=== PATIENT | male | born 1990 | race Caucasian/White ===

== ENCOUNTER 2018-02-27 05:55 | Emergency (ER) | payer MEDICAID ==
--- NOTE | 2018-02-27 06:56 | EDPHY ---
H & P Stated Complaint: LOITERING IN [facility], NOW FOOT PAIN AND NO SLEEP Source: Patient Exam Limitations: No limitations - Personal History Current Tetanus/Diphtheria Vaccine: Unsure Current Tetanus Diphtheria and Acellular Pertussis (TDAP): Unsure - Medical/Surgical History Hx Asthma: No Hx Chronic Respiratory Disease: No Hx Diabetes: No Hx Cardiac Disease: No Hx Renal Disease: No Hx Cirrhosis: No Hx Alcoholism: No Hx HIV/AIDS: No Hx Splenectomy or Spleen Trauma: No Other PMH: BIPOLAR, - Social History Smoking Status: Current every day smoker Time Seen by Provider: 02/27/18 06:45 HPI/ROS: HPI The patient presents with multiple complaints. He initially was in the [facility] earlier this morning. He was asking for food and a place to sleep. Security escorted him off the premises, however he returned complaining of foot pain and insomnia, thus he was roomed in the emergency department. The patient says he has not slept in the last 7 days and has been living in [place] using some sort of drug that he has been smoking and received from an acquaintance. He reports that he is hearing noises coming from outside of the [place] in to get him. He wonders if he used meth by mistake. He says that he normally lives in [place] with his mother, he came to [place] to start over about 1 month ago. He denies any SI or HI. He says he does have a history of bipolar disorder. REVIEW OF SYSTEMS Constitutional: No fever, no chills. Eyes: No discharge. ENT: No sore throat. Cardiovascular: No chest pain, no palpitations. Respiratory: No cough, no shortness of breath. Gastrointestinal: No abdominal pain, no vomiting. Genitourinary: No hematuria. Musculoskeletal: No back pain. Skin: No rashes. Neurological: No headache. PMHx: Bipolar disorder Soc Hx: Homeless, sleeping outside, history of marijuana use, questionable methamphetamine use PHYSICAL General Appearance: Alert, no distress Eyes: Pupils equal and round no pallor or injection ENT, Mouth: Mucous membranes moist Respiratory: There are no retractions, lungs are clear to auscultation Cardiovascular: Regular rate and rhythm Gastrointestinal: Abdomen is soft and non-tender, no masses, bowel sounds normal Neurological: A&O, moves all extremities Skin: Warm and dry, no rashes Musculoskeletal: Neck is supple non tender Extremities: symmetrical, full range of motion Psychiatric: Patient is oriented X 3, there is no agitation , he is having active hallucinations which are auditory (Fina Cordoba) Constitutional: Initial Vital Signs Temperature (C) 36.5 C 02/27/18 06:10 Heart Rate 86 02/27/18 06:10 Respiratory Rate 18 02/27/18 06:10 Blood Pressure 134/82 H 02/27/18 06:10 O2 Sat (%) 95 02/27/18 06:10 O2 Delivery Mode Room Air Allergies/Adverse Reactions: No Known Allergies Allergy (Unverified 02/27/18 06:44) Home Medications: Medication Instructions Recorded Melatonin [Melatonin 3 MG (*)] 3 mg PO HS 02/27/18 Omeprazole Magnesium [Prilosec] 10 mg PO 02/27/18 buPROPion [Wellbutrin 100mg (*)] 100 mg PO TID 02/27/18 Medical Decision Making ED Course/Re-evaluation: This patient was turned over to me at change of shift. He has been accepted at a mental health facility. Appropriate transfer paperwork been filled out. In addition ambulance has been called. (Juan Robin) I took over care of this patient at 3:00 p.m.. This patient is awaiting psychiatric evaluation by EPS. 8:30 p.m.. The patient has been seen and evaluated by Behavioral Health. They feel he is acutely psychotic. They will admit him for inpatient psychiatric management. The patient was placed on an M1 hold at this time. EPS is searching for placement destination. No further issues during my shift. Patient still awaits placement as of 11 PM. Care turned over to Dr. Espinoza at this time. (Rodrigo Chandra) Differential Diagnosis: This is a 27-year-old male, from out of town, with history of bipolar disorder. He has been off of his medications for the last 7 days including Wellbutrin. He has possibly been using methamphetamine. He is having insomnia, not sleeping for 7 days per his report, he is having auditory hallucinations. He does not have any SI or HI. He does not meet criteria at this point for an M1 hold. 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 However we will check basic labs and monitor him here. He was initially complaining of foot pain, however his foot exam is quite unremarkable and likely is pain is related to walking long distances. Differential diagnosis includes drug-induced psychosis, bipolar disorder with psychosis, less likely schizophrenia. At change of shift, the case is signed out to Dr. Rasmussen pending lab evaluation and psychiatric evaluation if he continues to have hallucinations. (Fina Cordoba) Other Provider: I assumed care of the patient at 7 o'clock in the morning pending psychiatric disposition. Patient has been medically cleared at 11:30 a.m. Psychiatric disposition is still pending as of 3:00 p.m.. The patient will be turned over Dr. Chandra at shift change. (Asad Rasmussen) 2230 care assumed by me from Dr. Chandra pending placement. 0700 patient signed out to Dr. Robin pending placement. No issues during my care this patient overnight. (Alex Espinoza) - Data Points Laboratory Results: Laboratory Results 02/27/18 07:05 02/27/18 07:05 Departure - Departure Disposition: Acute Care Hospital On license of [facility] Clinical Impression: Auditory hallucinations Condition: Fair Referrals: [facility],. [Clinic] - As per Instructions
[2018-02-28 08:02] VITALS: BP 124/74
== END 2018-02-28 11:09 | disposition short-term general hospital (02) ==
DX: R44.0 Auditory hallucinations (principal); F17.200 Nicotine dependence, unspecified, uncomplicated
CPT/HCPCS: 80305; G0480

== ENCOUNTER 2018-07-08 19:34 | Emergency (ER) | payer SELFPAY ==
[2018-07-08 19:43] VITALS: BP 144/76
--- NOTE | 2018-07-08 19:46 | EDPHY ---
H & P Stated Complaint: med clear Time Seen by Provider: 07/08/18 19:42 HPI/ROS: HPI: This is a 28-year-old male who presents with Chief Complaint: Medical clearance Location: body Quality: Medical clearance Duration: Unknown Signs and Symptoms: no auditory hallucinations, no visual hallucinations, no suicidal ideation with a plan, no homicidal ideation, + paranoia Timing: Unknown Severity: Moderate Context: Patient has a history of bipolar disorder presents via EMS and accompanied by [facility] Police requesting medical clearance. There was an argument at the transient camp in the police were called. Patient refused to answer questions or talk to EMS or the police. They are unaware of his history and brought him to the emergency room for further evaluation. He smells of alcohol. Patient denies to me suicidal ideation, homicidal ideation. He admits to drinking alcohol but will not tell me how much. He will not answer if he has use any illegal drugs. Modifying Factors: None Comment: ROS: A comprehensive 10 system review of systems is otherwise negative aside from elements mentioned in the history of present illness. MEDICAL/SURGICAL/SOCIAL HISTORY: Medical history: Bipolar disorder Surgical history: Denies Social history: Smoker. Family history noncontributory. CONSTITUTIONAL: Untidy, nontoxic-appearing adult white male, awake and alert, no obvious distress HEENT: Atraumatic and normocephalic, PERRL, EOMI. Nares patent; no rhinorrhea; no nasal mucosal edema. Tympanic membranes clear. Oropharynx clear, no exudate and moist pink mucosa. Airway patent. No lymphadenopathy. No meningismus. Cardiovascular: Normal S1/S2, regular rate, regular rhythm, without murmur rub or gallop. PULMONARY/CHEST: Symmetrical and nontender. Clear to auscultation bilaterally. Good air movement. No accessory muscle usage. ABDOMEN: Soft, nondistended, nontender, no rebound, no guarding, no peritoneal signs, no masses or organomegaly. No CVAT. EXTREMITIES: 2/2 pulses, strength 5/5, no deformities, no clubbing, no cyanosis or edema. NEUROLOGICAL: no focal neuro deficits. GCS 15. SKIN: Warm and dry, no erythema. no rash. Good capillary refill. PSYCH: Poor eye contact, easily agitated, refuses talk, wringing of hand, poor insight and judgment, no auditory hallucinations, no visual hallucinations, no suicidal ideation with a plan, no homicidal ideation, + paranoia Source: Patient, Police, EMS Exam Limitations: Clinical condition - Personal History Current Tetanus Diphtheria and Acellular Pertussis (TDAP): Yes - Medical/Surgical History Hx Asthma: No Hx Chronic Respiratory Disease: No Hx Diabetes: No Hx Cardiac Disease: No Hx Renal Disease: No Hx Cirrhosis: No Hx Alcoholism: No Hx HIV/AIDS: No Hx Splenectomy or Spleen Trauma: No Other PMH: BIPOLAR, - Social History Smoking Status: Current every day smoker Constitutional: Initial Vital Signs Heart Rate 90 07/08/18 19:38 Respiratory Rate 16 07/08/18 19:38 Blood Pressure 144/76 H 07/08/18 19:38 O2 Sat (%) 94 07/08/18 19:38 O2 Delivery Mode Room Air Allergies/Adverse Reactions: No Known Allergies Allergy (Unverified 07/08/18 19:38) Home Medications: Medication Instructions Recorded Melatonin [Melatonin 3 MG (*)] 3 mg PO HS 02/27/18 Omeprazole Magnesium [Prilosec] 10 mg PO 02/27/18 buPROPion [Wellbutrin 100mg (*)] 100 mg PO TID 02/27/18 Medical Decision Making ED Course/Re-evaluation: Vital signs reviewed and stable upon arrival. After much prompting patient finally started to talk to me. He does not meet M1 hold or Detainer criteria. He was medically clear and discharged into the custody of police. This patient was seen under the supervision of my secondary supervising physician. I evaluated care for this patient independently. Discussed this patient with Dr. Chandra. Differential Diagnosis: Differential diagnosis includes but is not limited to alcohol intoxication, intoxicated use, gurinder, psychosis, bipolar disorder. Departure - Departure Disposition: Law Enforcement/Court/Senior Care Clinical Impression: Muteness Bipolar disorder Qualifiers: Active/Remission status: currently active Current bipolar episode type: manic Current episode severity: moderate Qualified Code(s): F31.12 - Bipolar disorder , current episode manic without psychotic features, moderate Condition: Good Instructions: Bipolar Disorder (ED) Additional Instructions: Patient is medically cleared to be discharged into the care of law enforcement. Please follow up with [facility] or [facility] as needed. Referrals: [facility],. [Clinic] - As per Instructions [facility],. [Clinic] - As per Instructions
== END 2018-07-08 19:45 ==
LOC: EDUNIT#
DX: F31.9 Bipolar disorder, unspecified (principal); F17.200 Nicotine dependence, unspecified, uncomplicated

== ENCOUNTER 2018-07-12 05:12 | Emergency (ER) | payer SELFPAY ==
--- NOTE | 2018-07-12 05:20 | EDPHY ---
H & P Time Seen by Provider: 07/12/18 05:21 HPI/ROS: HPI CHIEF COMPLAINT: "stuck out in the cold" HISTORY OF PRESENT ILLNESS: 28-year-old male, homeless, states she drank large amount of alcohol last night, states drinks around 11:00 p.m.. It is now 515 in the morning. [place] He did not have any issues. EMS was called to contact him as he complained he was cold. He presents to the emergency room, alert and oriented, in no acute distress. Patient presents emergency room warm, he has a normal temperature. He has no focal complaints. He is not wearing shoes. His feet and hands do not appear h[place] been. He has no focal medical complaint. According to EMS the patient walked into the [employer] bus station to warm up. [employer] police asked him to leave he stated to him he was cold. Past Medical History: Denies significant medical history Past Surgical History: Denies significant surgical history Social History: Homeless. Alcohol last night. Family History: Noncontributory. ROS REVIEW OF SYSTEMS: 10 Systems were reviewed and negative with the exception of the elements mentioned in the history of present illness. Exam Constitutional nontoxic no acute distress triage nursing summary reviewed, vital signs reviewed, awake/alert. Vital signs stable. Not hypothermic. Eyes normal conjunctivae and sclera, EOMI, PERRLA. HENT normal inspection, atraumatic, moist mucus membranes, no epistaxis, neck supple/ no meningismus, no raccoon eyes. Respiratory clear to auscultation bilaterally, normal breath sounds, no respiratory distress, no wheezing. Cardiovascular rate normal, regular rhythm, no murmur, no edema, distal pulses normal. Gastrointestinal soft, non-tender, no rebound, no guarding, normal bowel sounds, no distension, no pulsatile mass. Genitourinary no CVA tenderness. Musculoskeletal no midline vertebral tenderness, full range of motion, no calf swelling, no tenderness of extremities, no meningismus, good pulses, neurovascularly intact. Skin pink, warm, & dry, no rash, skin atraumatic. No evidence of frostbite on exam. Neurologic awake, alert and oriented x 3, AAOx3, moves all 4 extremities equally, motor intact, sensory intact, CN II-XII intact, normal cerebellar, normal vision, normal speech. Psychiatric normal mood/affect. Heme/Lymph/Immune no lymphadenopathy. Differential Diagnosis: Includes but is not limited to in a particular order cold exposure, environmental exposure, alcoholism, homelessness. Medical Decision Making: Plan for this patient is vital signs are stable. He is not hypothermic. He has a normal temperature. He has no focal medical complaint. His breath alcohol level 0. We have provided warm socks to him. The patient can be discharged at light. Will give him resources for shelters. Source: Patient, EMS - Medical/Surgical History Hx Asthma: No Hx Chronic Respiratory Disease: No Hx Diabetes: No Hx Cardiac Disease: No Hx Renal Disease: No Hx Cirrhosis: No Hx Alcoholism: No Hx HIV/AIDS: No Hx Splenectomy or Spleen Trauma: No Other PMH: BIPOLAR, - Social History Smoking Status: Current every day smoker Allergies/Adverse Reactions: No Known Allergies Allergy (Unverified 07/12/18 05:18) Home Medications: Medication Instructions Recorded Melatonin [Melatonin 3 MG (*)] 3 mg PO HS 02/27/18 Omeprazole Magnesium [Prilosec] 10 mg PO 02/27/18 buPROPion [Wellbutrin 100mg (*)] 100 mg PO TID 02/27/18 Departure - Departure Disposition: Home, Routine, Self-Care Clinical Impression: Homeless, Cold exposure Condition: Good Instructions: Acute Hypothermia (ED) Additional Instructions: 1. We have provided you with resources for senior care. Referrals: NONE *PRIMARY CARE P,. [Primary Care Provider] - As per Instructions
[2018-07-12 06:49] VITALS: BP 112/70
== END 2018-07-12 06:48 | disposition home or self-care (01) ==
LOC: EDUNIT#
DX: T68.XXXA Hypothermia, initial encounter (principal); X31.XXXA Exposure to excessive natural cold, initial encounter; F31.9 Bipolar disorder, unspecified; Z59.0 Homelessness; F17.200 Nicotine dependence, unspecified, uncomplicated

== ENCOUNTER 2018-10-03 17:21 | Emergency (ER) | payer SELFPAY ==
[2018-10-03] MEDS ORDERED: IBUPROFEN 200 MG TAB PO ONE (17:30)
[2018-10-03] MEDS ORDERED: ONDANSETRON DISINTEGRATING 4 MG TAB PO ONE (17:30)
[2018-10-03 17:34] VITALS: BP 151/91
--- NOTE | 2018-10-03 17:42 | EDPHY ---
HPI/HX/ROS/PE/MDM Narrative: CLINICAL IMPRESSION: Head Injury, concussion ASSESSMENT/PLAN: Patient is a 28-year-old male with a history of bipolar disorder who is brought in by ambulance after sustaining a head injury. Patient is well appearing and in no acute distress, complains of mild discomfort at site of impact on crown of scalp as well as mild nausea. There was no loss of consciousness. Patient is afebrile and nontoxic-appearing, he is in no acute distress on arrival. His neurological exam is grossly normal with no focal deficit. Examination reveals mild tenderness to palpation of the scalp crown without evidence of abrasion, ecchymosis, hematoma or bony deformity. He has no new focal neurologic deficit , there has been no altered mentation, there are no clinical findings to suggest skull fracture, he is clinically not intoxicated, there is no known bleeding disorder, there has been no vomiting, no amnesia and no posttraumatic seizure. Given the patients history and physical, we feel a head CT is not indicated at this time. History and physical examination is most consistent with head injury and concussion. There were no findings to suggest skull fracture, intraparenchymal contusion, increased intracranial pressure or intracranial hemorrhage. The patient was observed for a period of time, his neurological exam remained grossly normal with no focal deficit and he was alert and oriented x4. The patient was given ibuprofen and Zofran with improvement of his pain and nausea. On repeat exam his neurological exam remained grossly normal with no focal deficit, he was able to ambulate independently and without difficulty. He states that he is feeling better and ready for discharge. The patient had no further concerns. The patient is Homeless however has a secured place in the senior care this evening; [facility] information provided and he understands importance of follow-up for repeat examination. Strict return precautions were discussed- he return to the emergency department for altered mentation, vomiting, seizure, severe headache, dizziness or for any other concerning symptom. Patient verbalizes understanding and is in agreement with this plan. Case discussed with Dr. Rodriguez. DIFFERENTIAL DX: Head injury including but not limited to concussion, skull fracture, intraparenchymal contusion, subarachnoid, subdural and epidural hematoma. ED COURSE: 5:30 p.m.: Discussed with Dr. Rodriguez. CHIEF COMPLAINT: Head injury, nausea HPI: Patient is a 28-year-old male who presents to the emergency department with complaints of posterior head pain and low-grade nausea after hitting his head on the ceiling when standing up. Patient reports just prior to arrival he was sitting in the garage smoking marijuana, he stood up suddenly and accidentally hit his head on the concrete ceiling. There was no loss of consciousness, he denies any headache, visual changes or altered sensation. He was able to ambulate and went back to his senior care where 911 was subsequently called by the facility. Patient denies any focal neurologic deficit, he has had no altered mentation, he is not on anticoagulation or anti-platelet therapy, he has no known bleeding disorder, there has been no vomiting, no amnesia and no posttraumatic seizure. Patient denies any neck or back pain, denies any other complaints or concerns. PMH: Bipolar Pertinent Past Surgical History: Denies Family History: Noncontributory Social History: Denies alcohol, denies cigarette smoking, daily marijuana REVIEW OF SYSTEMS: All other systems negative Constitutional: No fever, no chills, appetite change. Eyes: No discharge, vision change ENT: No sore throat, congestion, ear pain. Cardiovascular: No chest pain, no palpitations. Respiratory: No cough, no shortness of breath. Gastrointestinal: No abdominal pain, no vomiting, diarrhea. Genitourinary: No hematuria, dysuria, flank pain, pelvic pain Musculoskeletal: No back pain, joint swelling, joint pain, myalgias. Skin: No rashes, color change. Neurological: No dizziness, weakness. PHYSICAL EXAM: General Appearance: Alert, oriented, appropriate, NAD, non-toxic appearing, VSS , no hypoxia. HEENT: Normocephalic, atraumatic. Council of scalp with mild tenderness to palpation, no abrasions, ecchymosis, hematoma, crepitus or bony deformity. No Chrsitianson sign or raccoon eyes. Bilateral external ears are normal. Bilateral TMs normal without evidence of hemotympanum. Nares clear. Oropharynx is moist, uvula is midline. No evidence of malocclusion or oral trauma. Eyes: PERRLA, no acute vision change, nystagmus, swelling, discharge, pain or photosensitivity. EOMI intact without evidence of entrapment. Conjunctiva pink , no pallor or injection Neck: Supple, nontender, no lymphadenopathy, no midline pain, FROM, no meningismus. Respiratory: There are no retractions, lungs are clear to auscultation. Cardiac: Regular rate and rhythm, no murmurs or gallops. Gastrointestinal: Abdomen is soft, nontender, bowel sounds normal, no masses/ hernia, no rigidity, guarding or focal peritoneal findings. Neurological: MENTAL STATUS: Patient is alert and oriented to person, place, time, and situation. Recent and remote memory are intact. Attention and concentration are normal. Found knowledge is appropriate to level of education. Mood and affect normal. SPEECH: Language including naming, repetition, comprehension, and spontaneous speech are normal. No dysarthria or dysphagia. CRANIAL NERVES: II: Visual shah are full to confrontation. Vision is grossly intact. III, IV, : Pupils are equal, round, reactive to light. Extraocular eye movements are full and without nystagmus. V: Facial sensation is intact to touch symmetrically in all 3 divisions. VII: Face is symmetric at rest with no asymmetry of grimace or evidence of facial weakness. VIII: Hearing is intact bilaterally to finger rub. IX, X: Palate is midline and elevates symmetrically with intact cough/gag. XI: Sternocleidomastoid and trapezius strength is normal. XII: Tongue protrudes midline without atrophy or fasciculations. MOTOR: Normal bulk and tone symmetrically in the upper and lower extremities. Upper extremities: shoulder abduction, elbow flexion, elbow extension, flexion of fingers and finger abduction strength 5/5 bilaterally. Lower extremities: hip flexion, knee flexion and extension, plantar and dorsiflexion of foot, and great toe extension strength 5/5 bilaterally. No pronator drift. SENSORY: Sensation is intact to light touch and symmetric in the UE's in LE's bilaterally. Romberg is negative. COORDINATION: Fine motor and rapid alternating movements are normal. Finger to nose is normal bilaterally. [id number] is normal bilaterally. No abnormal movements noted. There is no tremor at rest or with posture or action. GAIT/STATION: Casual, straightforward gait is normal. Patient can walk on toes and on heels. No gait instability. Skin: Warm, dry, no rashes, no nodules on palpation. Musculoskeletal: Extremities are symmetrical, full range of motion, no tenderness, deformity, swelling, or erythema. Psychiatric: Patient is oriented X 3, there is no agitation. MEDICAL DECISION MAKING: Patient was seen with Dr. Rodriguez. Diagnosis: Head injury. Summary: See Assessment and Plan for summary of ED visit Clinical lab tests: Not applicable. Independent visualization of images, tracing, or specimens: Not applicable. Decision to obtain medical records or history from someone other than the patient: No Review / Summarize previous medical records: Yes Discussed patient with another provider: Yes, Dr. Rodriguez Patient Progress: Good, stable for discharge. - Data Points Medications Given: Discontinued Medications Ibuprofen (Motrin) 400 mg PO EDNOW ONE Stop: 10/03/18 17:31 Last Admin: 10/03/18 17:38 Dose: 400 mg Ondansetron HCl (Zofran Odt) 4 mg PO EDNOW ONE Stop: 10/03/18 17:31 Last Admin: 10/03/18 17:38 Dose: 4 mg General Initial Vital Signs: Initial Vital Signs Temperature (C) 36.6 C 10/03/18 17:31 Heart Rate 99 10/03/18 17:31 Respiratory Rate 16 10/03/18 17:31 Blood Pressure 151/91 H 10/03/18 17:31 O2 Sat (%) 97 10/03/18 17:31 O2 Delivery Mode Room Air Allergies/Adverse Reactions: No Known Allergies Allergy (Unverified 07/12/18 05:18) Home Medications: Medication Instructions Recorded Melatonin [Melatonin 3 MG (*)] 3 mg PO HS 02/27/18 Omeprazole Magnesium [Prilosec] 10 mg PO 02/27/18 buPROPion [Wellbutrin 100mg (*)] 100 mg PO TID 02/27/18 Departure - Departure Disposition: Home, Routine, Self-Care Clinical Impression: Concussion Qualifiers: Encounter type: initial encounter Loss of consciousness presence/duration: without LOC Qualified Code(s): S06.0X0A - Concussion without loss of consciousness, initial encounter Condition: Good Instructions: Concussion (ED) Additional Instructions: DISCHARGE INSTRUCTIONS FROM YOUR DOCTOR Thank you for visiting our emergency department today. Please keep in mind that discharge from the emergency department does not mean that there is nothing wrong - it simply means that we have not identified an emergency condition that requires further evaluation or treatment in the hospital. You should always plan to follow up with primary care for re-evaluation of your condition in the next 2-3 days. If you have been referred to a specialist, please call as soon as possible (today or tomorrow) to schedule your follow up appointment at the appropriate time. Brain rest: No phone, texting, t.v., music. Stop smoking as soon as possible. Avoid activities where the you could fall or reinjure your head. No contact sports until the pain, swelling and all symptoms have completely resolved and a primary care physician has cleared you. As discussed, head injuries can be cummulative. Your head needs a rest. Elevate the head of the bed to decrease pain and/or swelling. Ibuprofen 400 mg every 6 hours as directed as needed for pain, headache. Take with food. Stop if this upsets your stomach. Do not exceed 2400 mg in 24 hours. Tylenol 500 mg every 4 hours as directed as needed for pain, headache. Do not exceed 4000 mg in 24 hours. You should spend the next 24 hours with a pot holder binder who knows you well and can help monitor your symptoms. Return immediately for severe headache, unusual fatigue, difficulty being aroused, vomiting, dizziness, fainting, mental status changes, personality changes, tremor/seizure, visual disturbance, unusual movements, numbness, tingling, weakness or other concerns. Schedule a [facility]-up appointment with [facility] in 1-2 days re- evaluation. Use the list of resources if you need primary care contact information. Return for any of the above mentioned symptoms, for fever, chills, development of bruising or swelling, new site of pain, blurry vision, double vision, eye sensitivity to light, eye pain, visual disturbance, neck pain or stiffness, back pain, arm or leg pain, arm or leg numbness, tingling, weakness, for other signs of injury, change in or loss of bowel or bladder control, or for any other new, worsening or worrisome symptoms. People present with illnesses and injuries in different ways, and it is always possible that we have missed something. You may always return for re-evaluation if symptoms worsen or if they are not improving or if you develop new/different symptoms. Again, thank you for choosing our emergency department. We hope that you feel better. The [facility] has walk-in appointments for the homeless at the following days/locations. No appointment is needed. Thursday 8-10 am @ [facility] 11 AM-1 PM @ [facility] Thursday 8-10:30 AM @ [facility] Thursday 8-10 AM @ [facility] 2-4 PM @ [facility] Thursday 8-10 AM @ [facility] Referrals: Patient,NotPresent [Unknown] - As per Instructions
== END 2018-10-03 18:13 | disposition home or self-care (01) ==
LOC: EDUNIT#
DX: S06.0X0A Concussion without loss of consciousness, initial encounter (principal); F31.9 Bipolar disorder, unspecified; W22.09XA Striking against other stationary object, initial encounter; Z59.0 Homelessness; Y92.094 Garage of other non-institutional residence as the place of occurrence of the external cause; Y93.89 Activity, other specified; Y99.9 Unspecified external cause status